=== PATIENT | male | born 1975 | race Two or more races ===

== ENCOUNTER 2016-09-21 20:37 | Emergency (ER) | payer BC, OTHER ==
[~2016-09-21] VITALS: Ht 190.5 cm; Wt 88.5 kg
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
[2016-09-21] MEDS ORDERED: LIDOCAINE 0.5%-EPI 1:200,000 50 ML VIAL ONE (20:56)
[2016-09-21] MEDS ORDERED: LIDOCAINE 2%-EPI 1:200,000 20 ML VIAL IJ ONE (20:59)
[2016-09-21] MEDS ORDERED: LIDOCAINE 1%-EPI 1:100,000 50 ML VIAL IJ ONE (21:00)
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
--- NOTE | 2016-09-21 21:25 | NUR ---
dressing placed on wound s/p suture, patient noha well. dressing intact, no bleeding noted.
[2016-09-21 21:29] VITALS: BP 139/89
--- NOTE | 2016-09-21 21:29 | NUR ---
Patient discharged to home in stable condition. Written and verbal after care instructions given. Patient verbalizes understanding of instruction. Patient is ambulatory with steady gait, no further complaints.
== END 2016-09-21 21:42 | disposition home or self-care (01) ==
LOC: ER 20:38
DX: S81.811A Laceration without foreign body, right lower leg, initial encounter (principal); Z88.0 Allergy status to penicillin; W18.41XA Slipping, tripping and stumbling without falling due to stepping on object, initial encounter; Y93.89 Activity, other specified; Y92.89 Other specified places as the place of occurrence of the external cause; Y99.9 Unspecified external cause status
CPT/HCPCS: A4606; A6402; J3490; Z7610